=== PATIENT | male | born 1980 | race Asian ===

== ENCOUNTER 2019-12-05 15:03 | Emergency (ER) | payer OTHER ==
[~2019-12-05] VITALS: Ht 154.9 cm; Wt 72.6 kg
[2019-12-05] MEDS ORDERED: SODIUM CHLORIDE 0.9% 1000ML 1,000 ML IV SCH (16:15)
[2019-12-05] MEDS ORDERED: SODIUM CHLORIDE 0.9% 1000ML 1,000 ML ONE (16:42)
--- NOTE | 2019-12-05 17:45 | Diagnostic Imaging Report ---
EXAM: CT Abdomen and Pelvis WITHOUT contrast INDICATION: ^hematuria ^[id number] ^[id number] COMPARISON: None. TECHNIQUE: Abdomen and pelvis were scanned utilizing a multidetector helical scanner from the lung base to the pubic symphysis without administration of IV contrast. Absence of intravenous contrast decreases sensitivity for detection of focal lesions and vascular pathology. Coronal and sagittal reformations were obtained. Routine protocol was performed. IV CONTRAST: None ORAL CONTRAST: None COMPLICATIONS: None RADIATION DOSE: Total DLP: 600.65 mGy*cm Estimated effective dose: (DLP x 0.015 x size factor) mSv CTDIvol has been reviewed. It is below the limits set by the Radiation Protocol Committee (RPC). FINDINGS: LINES and TUBES: None. LOWER THORAX: 3 mm posterior left base nodule versus scarring/atelectasis. HEPATOBILIARY: Ill-defined subcentimeter left hepatic lobe hypodensity (series 3, image 26) is too small to characterize on this unenhanced study. No biliary ductal dilation. GALLBLADDER: No radio-opaque stones or sludge. No wall thickening. SPLEEN: No splenomegaly. PANCREAS: No focal masses or ductal dilatation. ADRENALS: No adrenal nodules KIDNEYS/URETERS: Mild to moderate chronic appearing left hydroureteronephrosis with multifocal areas of left renal cortical atrophy. No right hydronephrosis.Limited for evaluation of renal parenchyma without intravenous contrast. Several right renal calculi, the largest in the superior pole measuring 3 mm. GI TRACT: No abnormal distention, wall thickening, or evidence of bowel obstruction. Appendix is not clearly identified. There is however no fat stranding or adenopathy in the right lower quadrant to suggest appendicitis. PELVIC ORGANS/BLADDER: Coarse prostate calcifications. Bladder is unremarkable. LYMPH NODES: No lymphadenopathy. VESSELS: Limited evaluation without intravenous contrast. Duplicated IVC. PERITONEUM / RETROPERITONEUM: No free air or fluid. BONES: 1.5 cm right inferior acetabular sclerotic focus. Few additional subcentimeter left acetabular and left femoral head sclerotic foci. SOFT TISSUES: Small fat-containing umbilical hernia. IMPRESSION: 1. Multiple subcentimeter nonobstructive right renal calculi. 2. Chronic appearing mild to moderate left hydroureteronephrosis without evidence of obstructive urolithiasis. Multifocal areas of left renal cortical thinning. 3. Coarse prostate calcifications. 4. Tiny nonspecific left lung base nodule versus atelectasis/scarring. Without risk factors, no follow-up is necessary. With risk factors, follow-up with low-dose chest CT in one year is optional. 5. 1.5 cm right inferior acetabular sclerotic focus, could represent a bone island. Bone scan can be obtained to confirm. Signed by: Dr. Olu Bruce MD on 12/05/2019 5:42 PM
[2019-12-05 18:30] VITALS: BP 149/89
[2019-12-05] MEDS ORDERED: CEFDINIR300 MG PO (18:32)
== END 2019-12-05 18:34 | disposition home or self-care (01) ==
LOC: FSED 15:03
DX: R30.0 Dysuria (principal); R31.0 Gross hematuria; N20.0 Calculus of kidney; N39.0 Urinary tract infection, site not specified; R91.8 Other nonspecific abnormal finding of lung field
CPT/HCPCS: 74176; 80048; 80076; 81003; 85025; 99284; J7030; 74178